=== PATIENT | female | born 1945 | race Caucasian/White ===

== ENCOUNTER 2016-05-25 12:04 | Outpatient (CLI) | payer MEDICARE, OTHER | END 2016-05-25 12:05 | disposition home or self-care (01) | DX: R06.00 Dyspnea, unspecified (principal) ==

== ENCOUNTER 2016-06-09 03:21 | Emergency (ER) | payer MEDICARE, OTHER ==
[2016-06-09] MEDS ORDERED: NITROGLYCERIN SL 0.4 MG TABLET SL STA (04:13)
[2016-06-09] MEDS ORDERED: NITROGLYCERIN SL 0.4 MG TABLET SL ONE (04:21)
[2016-06-09] MEDS ORDERED: MAG HYDROX/AL HYDROX/SIMETH 30 ML UDC PO STA (05:13)
[2016-06-09] MEDS ORDERED: LIDOCAINE VISCOUS 2% 15 ML UDC MM STA (05:13)
[2016-06-09] MEDS ORDERED: MAG HYDROX/AL HYDROX/SIMETH 30 ML UDC ONE (05:21)
[2016-06-09] MEDS ORDERED: LIDOCAINE VISCOUS 2% 15 ML UDC MM ONE (05:21)
== END 2016-06-09 05:53 | disposition home or self-care (01) ==
DX: R07.89 Other chest pain (principal); I10 Essential (primary) hypertension; K21.9 Gastro-esophageal reflux disease without esophagitis; E03.9 Hypothyroidism, unspecified; Z79.82 Long term (current) use of aspirin
CPT/HCPCS: 36415; 71020; 80053; 83690; 83735; 83880; 84484; 85025; 93005; 93010; 99284; A9270

== ENCOUNTER 2016-06-17 12:56 | Outpatient (CLI) | payer MEDICARE, OTHER | END 2016-06-17 12:57 | disposition home or self-care (01) | DX: R06.00 Dyspnea, unspecified (principal); Z87.891 Personal history of nicotine dependence; R91.8 Other nonspecific abnormal finding of lung field ==

== ENCOUNTER 2016-10-24 15:13 | Emergency (ER) | payer MEDICARE, OTHER ==
[2016-10-24 15:21] VITALS: BP 151/71
[2016-10-24] MEDS ORDERED: NAPROXEN 250 MG TABLET PO STA (15:27)
--- NOTE | 2016-10-24 15:29 | ED Physician Documentation ---
PD HPI UPPER EXT INJURY - Stated complaint Stated Complaint: LT ARM/SHOULDER PAIN FALL - Chief complaint Chief Complaint: Ext Problem - History obtained from History obtained from: Patient - History of Present Illness Location: Right, Shoulder Type of injury: Fall (Fell after going on a curb, landed on her right shoulder and scraped her right elbow and left index finger. No other injuries. 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, Breast implants HEENT: Cataracts, Tonsil/Adenoidectomy - Present Medications Home Medications: Ambulatory Orders Medication Instructions Recorded Confirmed Aspirin [Aspir 81] 81 mg PO DAILY 09/16/13 06/09/16 Cholecalciferol (Vitamin D3) 2,000 unit PO DAILY 09/16/13 06/09/16 [Vitamin D3] Levothyroxine Sodium [Levoxyl] 137 mcg PO DAILY 09/16/13 06/09/16 Lorazepam 0.5 mg PO BID PRN 09/16/13 06/09/16 Losartan Potassium [Cozaar] 100 mg PO DAILY 09/16/13 06/09/16 Omeprazole [Prilosec] 20 mg PO BID 09/16/13 06/09/16 Simvastatin 20 mg PO DAILY 09/16/13 06/09/16 Zolpidem [Ambien] 5 mg PO HS PRN 09/16/13 06/09/16 hydroCHLOROthiazide [Hydrodiuril] 25 mg PO DAILY 09/16/13 06/09/16 Citalopram Hydrobromide [Celexa] 10 mg PO DAILY 09/04/14 06/09/16 - Allergies Allergies/Adverse Reactions: Allergies Allergy/AdvReac Type Severity Reaction Status Date / Time acetaminophen [From Vicodin] Allergy Emesis Verified 06/09/16 03:29 hydrocodone bitartrate * Allergy Emesis Verified 06/09/16 03:29 [From Vicodin] metronidazole [From Flagyl] AdvReac Intermediate Hives Verified 06/09/16 03:28 Metronidazole HCl * AdvReac Intermediate Hives Verified 06/09/16 03:28 [From Flagyl] - Social History Does the pt smoke?: No Smoking Status: Never smoker Does the pt drink ETOH?: Yes Does the pt have substance abuse?: No - Immunizations Immunizations are current?: Yes - POLST Patient has POLST: No PD ED PE NORMAL - Vitals Vital signs reviewed: Yes - General General: Alert and oriented X 3, No acute distress - Neck Neck: Supple, no meningeal sign, No bony TTP - Extremities Extremities: Other (Right shoulder is tender anteriorly but with relatively good range of motion with internal and external rotation and abduction up to 45 . There is a scrape over the right elbow but pretty shallow and no tenderness or limited range of motion there, also a small scrape over the PIP dorsally of the left second finger without limited range of motion or tenderness.) - Neuro Neuro: Alert and oriented X 3, Normal speech - Psych Psych: Normal mood, Normal affect Results - Vitals Vitals: Vital Signs - 24 hr 10/24/16 10/24/16 15:15 16:34 Temperature 36.7 C Heart Rate 76 66 Respiratory 18 17 Rate Blood Pressure 151/71 H O2 Saturation 96 95 Oxygen O2 Source Room air - Rads (name of study) R shoulder Radiology: EMP read contemporaneously (Mild AC DJD) PD MEDICAL DECISION MAKING - ED course ED course: Wounds were cleansed and dressed. Departure - Departure Disposition: 01 Home, Self Care Clinical Impression: Sprain of shoulder, right Qualifiers: Encounter type: initial encounter Shoulder sprain type: unspecified sprain Qualified Code(s): S43.401A - Unspecified sprain of right shoulder joint, initial encounter Condition: Good Record reviewed to determine appropriate education?: Yes Instructions: ED Sprain AC Joint Comments: Call your doctor to arrange a follow up appointment. Make the next available appointment. In the interim return anytime if worse or if new symptoms develop. Your blood pressure was elevated today on check in to the emergency department. This does not mean that you have hypertension, it is a common phenomenon to check into the emergency department and have elevated blood pressure. I recommend that you see your primary care physician within the week to have it rechecked when you're feeling better. Discharge Date/Time: 10/24/16 16:35
[2016-10-24] MEDS ORDERED: NAPROXEN 250 MG TABLET PO ONE (15:31)
--- NOTE | 2016-10-24 16:23 | XRAY Report ---
THREE-VIEW RIGHT SHOULDER: 10/24/2016 CLINICAL INDICATION: Injury, pain. FINDINGS: Internal and external rotational views and a scapular Y view of the right shoulder demonst rate mild degenerative changes of the acromioclavicular joint. There is no evidence of acute fractur e or dislocation. No radiopaque foreign body is seen in the soft tissues. IMPRESSION: MILD DEGENERATIVE CHANGES OF THE AC JOINT. NO EVIDENCE OF ACUTE FRACTURE. JOB #: [id number] EXT JOB #:[id number]
== END 2016-10-24 16:35 | disposition home or self-care (01) ==
LOC: ED 15:13
DX: S43.401A Unspecified sprain of right shoulder joint, initial encounter (principal); W10.1XXA Fall (on)(from) sidewalk curb, initial encounter; Y92.480 Sidewalk as the place of occurrence of the external cause; S50.311A Abrasion of right elbow, initial encounter; I10 Essential (primary) hypertension; E78.00 Pure hypercholesterolemia, unspecified; E03.9 Hypothyroidism, unspecified; K21.9 Gastro-esophageal reflux disease without esophagitis; M19.90 Unspecified osteoarthritis, unspecified site; Z79.82 Long term (current) use of aspirin
CPT/HCPCS: 73030; 99283; A9270

== ENCOUNTER 2016-11-10 10:15 | Outpatient (CLI) | payer MEDICARE, OTHER ==
--- NOTE | 2016-11-11 09:42 | Mammography Report ---
DIGITAL BILATERAL SCREENING MAMMOGRAM: 11/10/2016 CLINICAL HISTORY: This is a 71-year-old female who has bilateral breast implants. The patient recen tly fell and had significant bruising involving her left breast. Patient has no family history of br east cancer. Breast surgery includes implants. TECHNIQUE: Craniocaudad and oblique lateral views of each breast were obtained with [facility] Full Fie ld digital mammography. To compliment the exam, bilateral craniocaudad and oblique lateral August vi ews were done. FINDINGS: Bilateral subglandular encapsulated silicone breast prostheses are seen. The encapsulated silicone breast prostheses have free silicone along their surface bilaterally. Free silicone has no t migrated beyond the area of the prostheses/fibrous encapsulation. Some scattered benign-appearing calcifications are noted in the breasts related to benign fat necrosi s. Breast parenchyma consists of almost entirely of fat. There is a new asymmetrical density noted in the upper outer quadrant of the left breast. This measures 1.8 cm and has mildly lobulated margin s. It resides in the 2 o'clock position of the left breast 4-5 cm superolateral to the nipple. This finding may represent a small hematoma due to patient's recent trauma. Recommend patient return for left breast ultrasound to further evaluate this finding. Right breast demonstrates tiny density in the superior aspect of this breast measuring 0.3 cm in diam eter. This finding has been present on preceding mammograms dated as far back as 01/27/2014 without significant change. IMPRESSION: 1. A 1.8 CM ASYMMETRICAL DENSITY IN THE 2 O'CLOCK POSITION OF THE LEFT BREAST IS NOW SEEN. THIS WAS NOT NOTED ON PRECEDING MAMMOGRAMS. IT MAY REPRESENT A HEMATOMA RELATED TO PATIENT'S RECENT TRAUMA. RECOMMEND PATIENT RETURN FOR LEFT BREAST ULTRASOUND FOR FURTHER EVALUATION. 2. BILATERAL ENCAPSULATED SUBGLANDULAR SILICONE BREAST PROSTHESES. JOB #: [id number] EXT JOB #:[id number]
== END 2016-11-10 10:16 | disposition home or self-care (01) ==
LOC: DI 10:15
PROVIDERS: ATTEND Registered Nurse
DX: Z12.31 Encounter for screening mammogram for malignant neoplasm of breast (principal); R92.8 Other abnormal and inconclusive findings on diagnostic imaging of breast; Z98.82 Breast implant status
CPT/HCPCS: 77067

== ENCOUNTER 2016-11-16 10:59 | Outpatient (CLI) | payer MEDICARE, OTHER | END 2016-11-16 11:00 | disposition home or self-care (01) | LOC: LAB.F 10:59 | PROVIDERS: ATTEND Internal Medicine Cardiovascular Disease | DX: R00.2 Palpitations (principal); I10 Essential (primary) hypertension | CPT/HCPCS: 36415; 83735 ==

== ENCOUNTER 2016-11-30 13:56 | Outpatient (CLI) | payer MEDICARE, OTHER ==
--- NOTE | 2016-11-30 18:12 | Ultrasound Report ---
LEFT BREAST ULTRASOUND: 11/30/2016 CLINICAL INDICATION: Possible asymmetry left upper-outer quadrant. COMPARISON: Screening mammogram 11/10/2016. TECHNIQUE: Real-time scanning was performed with healthcare sales representative static images obtained. Ultrasound of the left upper-outer quadrant was performed. Unremarkable parenchymal lobules are pres ent. No discrete solid or cystic mass is identified. No sonographically suspicious findings are see n. Subglandular implant is noted. IMPRESSION: NEGATIVE EXAMINATION. RECOMMENDATION: ROUTINE ANNUAL SCREENING UNLESS OTHERWISE CLINICALLY INDICATED. BIRADS CATEGORY: 1, NEGATIVE. JOB #: [id number] EXT JOB #:[id number]
== END 2016-11-30 13:57 | disposition home or self-care (01) ==
LOC: DI 13:56
PROVIDERS: ATTEND Registered Nurse
DX: N63 Unspecified lump in breast (principal)
CPT/HCPCS: 76642

== ENCOUNTER 2017-02-16 09:03 | Outpatient (CLI) | payer MEDICARE, OTHER ==
[2017-02-16 17:51] LABS: ALBUMIN/GLOBULIN RATIO 1.6 (1.0-2.2); BILIRUBIN,TOTAL 0.7 mg/dL (0.2-1.0); CALCIUM 9.2 mg/dL (8.5-10.3); CREATININE 0.9 mg/dL (0.4-1.0); POTASSIUM 4.1 mmol/L (3.5-5.0); TOTAL PROTEIN 7.1 g/dL (6.7-8.2)
== END 2017-02-16 09:04 | disposition home or self-care (01) ==
LOC: LAB.F 09:03
PROVIDERS: ATTEND Registered Nurse
DX: E03.9 Hypothyroidism, unspecified (principal); I10 Essential (primary) hypertension; E78.5 Hyperlipidemia, unspecified
CPT/HCPCS: 36415; 80053; 84443

== ENCOUNTER 2017-05-01 08:58 | Outpatient (CLI) | payer MEDICARE, OTHER ==
--- NOTE | 2017-05-02 10:49 | XRAY Report ---
TWO-VIEW CHEST: 05/01/2017 CLINICAL INDICATION: Cough, dyspnea. FINDINGS: Frontal and lateral views of the chest demonstrate a normal cardiac silhouette. The lungs are hyperinflated, suggestive of COPD. No focal consolidation, effusion, or pneumothorax is evident. IMPRESSION: NO EVIDENCE OF ACUTE CARDIOPULMONARY DISEASE. NO SIGNIFICANT INTERVAL CHANGE FROM 06/09/2016. MTDD
== END 2017-05-01 08:59 | disposition home or self-care (01) ==
LOC: DI 08:58
PROVIDERS: ATTEND Registered Nurse
DX: R05 Cough (principal); R06.00 Dyspnea, unspecified
CPT/HCPCS: 71020

== ENCOUNTER 2017-05-18 14:11 | Observation (INO) | payer MEDICARE, OTHER ==
--- NOTE | 2017-05-18 14:59 | ED Physician Documentation ---
PD HPI CHEST PAIN - Stated complaint Stated Complaint: CHEST TIGHTNESS - Chief complaint Chief Complaint: Cardiac - History obtained from History obtained from: Patient - History of Present Illness Timing - onset: Other (For the last month or so she has had episodic chest pain that is central and sometimes radiating to the back and out to the arms that usually starts when she bends over and last about a minute at a time. The intensity is not increasing but the frequency is, she had 3 episodes today which is new. She is a little short of breath with it. She is in minimal pain as we speak. Per her she had a negative stress test 3 years ago and had a chest x-ray without acute changes within the last week.) - Treatment prior to arrival Treatment prior to arrival: She took 4 baby aspirin just prior to coming to the emergency department. 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, 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, Breast implants HEENT: Cataracts, Tonsil/Adenoidectomy - Present Medications Home Medications: Ambulatory Orders Medication Instructions Recorded Confirmed Aspirin [Aspir 81] 81 mg PO DAILY 09/16/13 06/09/16 Cholecalciferol (Vitamin D3) 2,000 unit PO DAILY 09/16/13 06/09/16 [Vitamin D3] Levothyroxine Sodium [Levoxyl] 137 mcg PO DAILY 09/16/13 06/09/16 Lorazepam 0.5 mg PO BID PRN 09/16/13 06/09/16 Losartan Potassium [Cozaar] 100 mg PO DAILY 09/16/13 06/09/16 Omeprazole [Prilosec] 20 mg PO BID 09/16/13 06/09/16 Simvastatin 20 mg PO DAILY 09/16/13 06/09/16 Zolpidem [Ambien] 5 mg PO HS PRN 09/16/13 06/09/16 hydroCHLOROthiazide [Hydrodiuril] 25 mg PO DAILY 09/16/13 06/09/16 Citalopram Hydrobromide [Celexa] 10 mg PO DAILY 09/04/14 06/09/16 - Allergies Allergies/Adverse Reactions: Allergies Allergy/AdvReac Type Severity Reaction Status Date / Time acetaminophen [From Vicodin] Allergy Emesis Verified 05/18/17 14:50 hydrocodone bitartrate * Allergy Emesis Verified 05/18/17 14:50 [From Vicodin] metronidazole [From Flagyl] AdvReac Intermediate Hives Verified 05/18/17 14:50 Metronidazole HCl * AdvReac Intermediate Hives Verified 05/18/17 14:50 [From Flagyl] - Social History Does the pt smoke?: No Smoking Status: Never smoker Does the pt drink ETOH?: Yes Does the pt have substance abuse?: No - Family History Family history: reports: Non contributory - Immunizations Immunizations are current?: Yes - POLST Patient has POLST: No PD ED PE NORMAL - Vitals Vital signs reviewed: Yes - General General: Alert and oriented X 3, No acute distress - HEENT HEENT: PERRL, EOMI - Neck Neck: Supple, no meningeal sign, No bony TTP - Cardiac Cardiac: RRR, No murmur - Respiratory Respiratory: No respiratory distress, Clear bilaterally - Abdomen Abdomen: Soft, Non tender - Back Back: No CVA TTP, No spinal TTP - Derm Derm: Normal color, Warm and dry, No rash - Extremities Extremities: No edema - Neuro Neuro: Alert and oriented X 3, Normal speech - Psych Psych: Normal mood, Normal affect Results - Vitals Vitals: Vital Signs - 24 hr 05/18/17 14:37 Temperature 36.4 C L Heart Rate 69 Respiratory 16 Rate Blood Pressure 179/90 H O2 Saturation 100 Oxygen O2 Source Room air - EKG (time done) 1421 Rate: Rate (enter#) (68) Rhythm: NSR Intervals: Other (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) QRS: Low voltage Ischemia: Normal ST segments Computer interpretation: Agree with computer - Labs Labs: Laboratory Tests 05/18/17 05/18/17 05/18/17 15:20 15:20 15:20 WBC 7.0 RBC 4.28 Hgb 13.1 Hct 38.1 MCV 89.1 MCH 30.6 MCHC 34.4 RDW 13.0 Plt Count 250 MPV 8.3 Neut # 4.1 Lymph # 2.2 [place] # 0.4 Eos # 0.1 Baso # 0.1 Absolute Nucleated RBC 0.00 Nucleated RBC % 0.0 Sodium 137 Potassium 4.0 Chloride 100 L Carbon Dioxide 28 Anion Gap 9.0 BUN 16 Creatinine 0.7 Estimated GFR (MDRD) 82 L Glucose 99 Calcium 9.7 Total Bilirubin 0.8 AST 32 ALT 42 Alkaline Phosphatase 68 Troponin I < 0.04 Total Protein 7.3 Albumin 4.4 Globulin 2.9 Albumin/Globulin Ratio 1.5 Lipase 28 PD MEDICAL DECISION MAKING - ED course ED course: She had a recent chest x-ray which was negative, so this was not repeated. She had aspirin prior to arrival. She is atypical chest pain but it is increasing in frequency, negative biomarkers, a new left anterior fascicular block on EKG without other ST-T changes. She probably deserves overnight observation and stress testing, spoke with Dr. Barker at 4:08 PM for observation. Departure - Departure Disposition: ED Place in Observation Clinical Impression: Chest pain Qualifiers: Chest pain type: unspecified Qualified Code(s): R07.9 - Chest pain, unspecified Condition: Stable
[2017-05-18 15:32] LABS: BASOPHILS # (AUTO) 0.1 10^3/uL (0.0-0.1); BASOPHILS % (AUTO) 0.8 %; EOSINOPHILS # (AUTO) 0.1 10^3/uL (0.0-0.7); HGB - HEMOGLOBIN 13.1 g/dL (12.0-16.0); LYMPHOCYTES # (AUTO) 2.2 10^3/uL (1.5-3.5); MEAN CORPUSCULAR HEMOGLOBIN 30.6 pg (27.0-31.0); MEAN CORPUSCULAR HGB CONC 34.4 g/dL (32.0-36.0); MEAN CORPUSCULAR VOLUME 89.1 fL (81.0-99.0); MEAN PLATELET VOLUME 8.3 fL (7.9-10.8); MONOCYTES # (AUTO) 0.4 10^3/uL (0.0-1.0); MONOCYTES % (AUTO) 6.3 %; NEUTROPHILS # (AUTO) 4.1 10^3/uL (1.5-6.6); NEUTROPHILS % (AUTO) 58.9 %; PLT - PLATELET COUNT 250 10^3/uL (130-450); RED BLOOD COUNT 4.28 10^6/uL (4.20-5.40)
[2017-05-18 15:41] LABS: ALBUMIN 4.4 g/dL (3.2-5.5); ALBUMIN/GLOBULIN RATIO 1.5 (1.0-2.2); BILIRUBIN,TOTAL 0.8 mg/dL (0.2-1.0); CALCIUM 9.7 mg/dL (8.5-10.3); CREATININE 0.7 mg/dL (0.4-1.0); TOTAL PROTEIN 7.3 g/dL (6.7-8.2)
[2017-05-18] MEDS ORDERED: TEMAZEPAM 15 MG CAPSULE PO PRN (16:35)
[2017-05-18] MEDS ORDERED: PROCHLORPERAZINE 10 MG/2 ML VIAL IVP PRN (16:35)
[2017-05-18] MEDS ORDERED: ACETAMINOPHEN 325 MG TABLET PO PRN (16:35)
[2017-05-18] MEDS ORDERED: HYDROmorphone 1 MG/ML SYRINGE IVP PRN (16:35)
[2017-05-18] MEDS ORDERED: SODIUM CHLORIDE FLUSH 0.9% 10 ML SYRINGE IVP PRN (16:35)
[2017-05-18] MEDS ORDERED: NITROGLYCERIN SL 0.4 MG TABLET SL PRN (16:40)
[2017-05-18] MEDS ORDERED: ZOLPIDEM 5 MG TABLET PO PRN (16:43)
[2017-05-18] MEDS ORDERED: LORazepam 0.5 MG TABLET PO PRN (16:43)
[2017-05-18] MEDS ORDERED: ATORVASTATIN 40 MG TABLET PO STA (16:45)
[2017-05-18] MEDS ORDERED: ATORVASTATIN 40 MG TABLET PO SCH (22:00)
[2017-05-18] MEDS: SODIUM CHLORIDE FLUSH 0.9% 10 ML SYRINGE IVP SCH (22:49)
[2017-05-19 04:16] LABS: CHOLESTEROL 170 mg/dL; HDL CHOLESTEROL 42 mg/dL; LDL CHOLESTEROL,CALCULATED 95 mg/dL; LDL/HDL RATIO 2.3 (<4.4); VLDL CHOLESTEROL 33 mg/dL
[2017-05-19] MEDS: SODIUM CHLORIDE FLUSH 0.9% 10 ML SYRINGE IVP SCH ×2 (06:32→14:55)
[2017-05-19] MEDS ORDERED: LEVOTHYROXINE 25 MCG TABLET PO SCH (07:00)
[2017-05-19] MEDS ORDERED: LEVOTHYROXINE 112 MCG TABLET PO SCH (07:00)
[2017-05-19] MEDS ORDERED: ASPIRIN 325 MG TABLET PO SCH (08:00)
[2017-05-19] MEDS ORDERED: LOSARTAN 50 MG TABLET PO SCH (09:00)
[2017-05-19] MEDS ORDERED: FAMOTIDINE 20 MG TABLET PO SCH (09:00)
[2017-05-19] MEDS ORDERED: POLYETHYLENE GLYCOL 3350 17 GM PACKET PO SCH (09:00)
[2017-05-19] MEDS ORDERED: LOSARTAN POTASSIUM 100 MG PO SCH (09:00)
[2017-05-19] MEDS ORDERED: hydroCHLOROthiazide 25 MG TABLET PO SCH (09:00)
[2017-05-19] MEDS ORDERED: CITALOPRAM 10 MG TABLET PO SCH (09:00)
--- NOTE | 2017-05-19 13:40 | HISTORY & PHYSICAL EXAMINATION ---
DATE OF SERVICE: 05/18/2017 Physician: Jenniffer Porras MD HISTORY OF PRESENT ILLNESS: This is a 72-year-old white female with history of hypertension, hyperlipidemia, heart murmur, hypothyroidism, GERD, anxiety and depression, chronic back pain. 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 The patient states that for approximately one month she has had episodes of pain that begins in her mid back, radiates down both arms and then wraps around her chest "like Saran wrap tightening." This always happens after she has leaned over to do something and then upon arising. It is associated with dizziness and overall uncomfortable feeling and she "needs to sit down or think she will faint." She has never had syncope with this. There is no shortness of breath or palpitations with it. She has been seen by her primary care doctor for this complaint and there was an impression that this could be a hiatal hernia or GERD. The patient is scheduled to see a locksmith apprentice in approximately 2 weeks, a stress test and echo are also scheduled in about the next 7-10 days. The patient had 3 episodes of this symptom today and therefore she presented to the emergency room, normally she has only 1 per day. The patient took 4 baby aspirin just prior to coming. REVIEW OF SYSTEMS: The patient has mid and low back pain, longstanding. She has had prior injections, which did help for several months for the lower back pain, but the most recent one has not helped and during the injection she describes feeling shock feeling going down the posterior part of her leg because she thinks that the nerve was hit. Otherwise, comprehensive review of systems was performed and is negative, except for the above. FAMILY HISTORY: Positive for heart disease. Early family history and her sister, 2 nieces. Her father of a ruptured aortic aneurysm. Mother's history is not known. MEDICATIONS: At home 1. Baby aspirin daily. 2. Vitamin D3. 3. Levoxyl 137 mcg daily. 4. Lorazepam 0.5 mg p.o. b.i.d. p.r.n. anxiety. 5. Cozaar 100 mg p.o. daily. 6. Prilosec 20 mg p.o. b.i.d. 7. Simvastatin 20 mg p.o. daily. 8. Ambien 5 mg p.o. at bedtime p.r.n. 9. HCTZ 25 mg p.o. daily. 10. Celexa 10 mg p.o. daily. ALLERGIES 1. VICODIN WHICH CAUSED EMESIS. 2. FLAGYL WHICH CAUSED HIVES. SOCIAL HISTORY: The patient is a nonsmoker. She quit 30 years ago. The patient drinks alcohol only socially. She does not use any illicit drugs. PAST SURGICAL HISTORY: Tubal ligation, hysterectomy, breast implants, cataract surgery, tonsils. PHYSICAL EXAMINATION: GENERAL: Elderly white female who appears younger than her age. She is in no distress. VITAL SIGNS: Blood pressure 140/90, but was as high as 160/70 on admission. Heart rate is in the 60s and 70s in sinus rhythm, afebrile, 100% saturated on room air. ENT is unremarkable. Moist oral mucosa. NECK: Shows no JVD. No thyromegaly. No lymphadenopathy. The right neck has a positive right carotid bruit. LUNGS: Clear. HEART: Sounds are normal, without murmur or gallop. ABDOMEN: Soft, nontender. No organomegaly. EXTREMITIES: Show no clubbing, cyanosis or edema. No rash. No calf tenderness. NEUROLOGIC: Grossly intact. LABORATORY DATA: Troponin NONdetectable x1. Normal BMP and liver tests normal BUN and creatinine. Normal CBC. 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 Chest x-ray: No active pulmonary disease. IMPRESSION 1. Chest pain with typical description of features for angina, but atypical presentation in that it only begins when she leans over and rises upright. 2. Hypertension. 3. Hypothyroidism. Elevated cholesterol history. carotid bruit. Family history of early heart disease. Family history of aortic aneurysm. PLAN: Place the patient in observation on telemetry. Cycle troponins. If these are negative, then proceed to a stress test tomorrow. Recommend aortic imaging to rule out dilation or dissection as well because of the location of the beginning of pain plus the family history. Check lipids and treat per guidelines. Continue her hypertensive and hypothyroid medicines. Obtain carotid Doppler given the new bruit . TD: 05/19/2017 14:27 [facility]
[2017-05-19] MEDS ORDERED: REGADENOSON 0.4 MG/5 ML SYRINGE IVP ONE ×2 (14:13→15:52)
[2017-05-19] MEDS ORDERED: IOPAMIDOL-300 100 ML VIAL ONE (14:56)
--- NOTE | 2017-05-19 17:31 | CARDIAC PROCEDURE NOTE ---
DATE OF SERVICE: 05/19/2017 Physician: Jenniffer Porras MD DATE: 05/19/2017. LOCATION: Observation. After signing informed consent, the patient underwent a Lexiscan pharmaceutical stress test with myoc ardial perfusion imaging at rest and exercise. Baseline EKG: Normal sinus rhythm, right bundle branch block, left anterior fascicular block. Peak EKG: No ST or T-wave changes. Resting heart rate 72. Peak heart rate achieved 122. Resting blood pressure 166/82. Peak blood pre ssure 170/70. The patient experienced brief flushing and shortness of breath. No chest pain. IMPRESSION: Negative EKG portion of a pharmaceutical stress test. Nuclear images are reported separately. TD: 05/19/2017 18:18
[2017-05-19] MEDS ORDERED: IBUPROFEN 600 MG TABLET PO SCH (18:00)
--- NOTE | 2017-05-19 18:40 | Nuclear Medicine Prelim Report ---
Exam: NM MYOCARDIAL PERFUSION STR/RST IMPRESSION: 1. No scintigraphic findings to indicate myocardial ischemia. Negative for infarct. 2. Normal left ventricular ejection fraction of 84%. 3. Normal segmental and global wall motion. 4. Normal left ventricular cavity size, no change with stress. RADIA The call report notification system was initiated by Dr. Pooja Wiggins at 18:36 hrs on 05/19/17. The above findings were discussed with Dr Chiquita Dr by Dr. Pooja Wiggins at 18:39 hrs on 04/22 02/05. SITE ID: [id number]
--- NOTE | 2017-05-19 18:48 | Nuclear Medicine Report ---
EXAM: SINGLE-ISOTOPE PHARMACOLOGICAL STRESS TEST WITH ADENOSINE. SINGLE-ISOTOPE AND SAME-DAY REST/STRESS MY OCARDIAL PERFUSION SCANS WITH TOMOGRAPHIC IMAGING, QUANTITATIVE ANALYSIS, WALL MOTION ANALYSIS AND CA LCULATION OF EJECTION FRACTION. EXAM DATE: 05/19/2017 04:49 PM. CLINICAL HISTORY: Chest pain. COMPARISON: None. TECHNIQUE: Following the intravenous administration of 10.4 mCi of Tc-99m sestamibi, a rest myocardia l perfusion scan was done with tomography. Motion correction was applied when appropriate. After a delay of several hours on the same day, a pharmacological stress was performed with the infus ion of 0.4 mg of Lexiscan. According to protocol, 42.6 mCi of Tc-99m sestamibi was injected for stres s myocardial perfusion scan. Stress myocardial perfusion was done with tomography without attenuation correction. Motion correction was applied when appropriate. Gated tomographic images were obtained for wall motion analysis and computation of left ventricular ejection fraction. FINDINGS: Stress perfusion images demonstrate normal distribution of radiotracer activity without alisha dence of fixed or reversible ischemia. No other convincing perfusion abnormalities. No convincing evidence of transient ischemic dilatation. Resting wall motion analysis demonstrates normal wall motion. The left ventricular end-diastolic volume is 68 cc. The left ventricular end-systolic volume is 11 cc . The left ventricular ejection fraction is calculated to be 84%. IMPRESSION: 1. No scintigraphic findings to indicate myocardial ischemia. Negative for infarct. 2. Normal left ventricular ejection fraction of 84%. 3. Normal segmental and global wall motion. 4. Normal left ventricular cavity size, no change with stress. BRENNA The call report notification system was initiated by Dr. Pooja Wiggins at 18:36 hrs on 05/19/17. The above findings were discussed with Dr. Porras by Dr. Pooja Wiggins at 18:39 hrs on 7. Referring Provider Line: [phone] SITE ID: [id number]
[2017-05-19 19:11] VITALS: BP 115/45
--- NOTE | 2017-05-19 19:31 | Discharge Plan ---
Discharge Plan Disposition: 01 Home, Self Care Condition: Stable Diet: Low Sodium Activity Restrictions: Activity as Tolerated Shower Restrictions: No Driving Restrictions: No Additional Instructions or Follow Up instructions: See your PCP and Cream Dipper as already scheduled. You should have: Carotid Doppler exam to evaluate the abnormal sound in the Right carotid artery CT scan of the chest to evaluate for aortic aneurysm or dissection, especially since your father of this disease. Continue all your previous medications. Have your doctor adjust your medications for better blood pressure control. No Smoking: If you smoke, Please STOP! Call for help. Follow-up with: Noris Shah ARNP [Primary Care Provider] -
--- NOTE | 2017-07-03 06:27 | DISCHARGE SUMMARY ---
Physician: Jenniffer Porras MD DATE OF ADMISSION: 05/18/2017 DATE OF DISCHARGE: 05/19/2017 DATE OF ADMISSION: 05/18/2017 DATE OF DISCHARGE: 05/19/2017 HISTORY OF PRESENT ILLNESS: This is a 72-year-old white female with history of hypertension, hyperlipidemia, hypothyroidism, GERD, heart murmur, who came to the ER for a complaint of 1 month of chest pain that begins in her mid back and radiates down both arms and wraps around her chest normally occurring when she leans over and then uprights. Then she has mild dizziness which quickly dissipates. These symptoms usually were happening once a day, but on this day there were 3 recurrences, so she presented to the emergency room. Because of her age and risk factors for cardiovascular disease, she was placed in observation for evaluation and management of chest pain. HOSPITAL COURSE AND DISCHARGE DIAGNOSES 1. Chest pain. The patient's risk factors for coronary artery disease include age, family history, hypertension, hyperlipidemia, postmenopausal status. The patient had blood troponins evaluated x3, which were all undetectable. 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 The patient then underwent pharmaceutical stress testing using Lexiscan. There were no changes in the EKG with stress and she had no chest pain or shortness of breath. The corresponding myocardial perfusion imaging showed no evidence of ischemia, no LV dilation, or wall motion abnormalities and an LVEF of 84%. The patient also underwent a resting Echo which showed mild LVH, a resting LVEF of 60% and mild LV diastolic dysfunction. Her lipid panel showed good control with an LDL of 95, triglyceride 167. The patient was discharged with plan to have the already scheduled appointment with her geothermal plant manager for further evaluation, especially to undergo CT scan of the chest (because her father had an aortic aneurysm). Also, since a right-sided carotid bruit was heard on this admission, an outpatient carotid Doppler and further evaluation is advised. 2. Hypertension. The patient's blood pressure was intermittently elevated during her stay, at 156/78, but adjustments in BP medications are left to be done by her geothermal plant manager or PCP. 3. Right carotid bruit. This was an incidental finding on physical exam. Outpatient carotid Doppler and further testing is recommended. 4. Hypothyroidism. The patient was maintained on her thyroid replacement during this hospitalization. LABORATORY DATA AND IMAGING: Reviewed and summarized above. ALLERGIES 1. TYLENOL. 2. HYDROCODONE. 3. METRONIDAZOLE. DISCHARGE MEDICATIONS: Unchanged from admission: 1. Ativan 0.5 to 1 mg p.o. b.i.d. p.r.n. anxiety. 2. Vitamin D3 2000 units daily. 3. Baby aspirin daily. 4. HCTZ 25 mg daily. 5. Ambien 5 mg p.o. at bedtime p.r.n. insomnia. 6. Simvastatin 20 mg q.p.m. 7. Synthroid 137 mcg p.o. daily. 8. Cozaar 100 mg p.o. daily. STATUS AT DISCHARGE: Stable EXAM AT DISCHARGE: HEENT: unremarkable Neck: Right-sided carotid bruit, no JVD or thyromegaly Chest: clear Heart: normal S1 and S2, 2/6 systolic murmur at left sternal border radiating to base Abdomen: soft and unremarkable Extremities: WNL Neuro: grossly normal CODE STATUS: FULL CODE. FOLLOWUP: With her geothermal plant manager in 2 weeks as already scheduled, and with her PCP for routine followup. TIME REQUIRED TO COMPLETE THIS ENTIRE DISCHARGE: 30 minutes. TD: 07/03/2017 06:26 STEVE
== END 2017-05-19 19:55 | disposition home or self-care (01) ==
LOC: ED 14:11 → OBS 16:35
PROVIDERS: ADMIT Internal Medicine; ATTEND Internal Medicine
DX: R07.89 Other chest pain (principal); I11.9 Hypertensive heart disease without heart failure; E03.9 Hypothyroidism, unspecified; K21.9 Gastro-esophageal reflux disease without esophagitis; F32.9 Major depressive disorder, single episode, unspecified; F41.9 Anxiety disorder, unspecified; E78.5 Hyperlipidemia, unspecified; R01.1 Cardiac murmur, unspecified; M54.5 Low back pain; G89.29 Other chronic pain; Z87.891 Personal history of nicotine dependence; Z82.49 Family history of ischemic heart disease and other diseases of the circulatory system; Z79.82 Long term (current) use of aspirin; Z78.0 Asymptomatic menopausal state
CPT/HCPCS: 36415; 78452; 80053; 80061; 83690; 84484; 85025; 93017; 93306; 99283; 99285; A9270; A9500; G0378; J2785; 83721

== ENCOUNTER 2017-06-01 13:09 | Outpatient (CLI) | payer MEDICARE, OTHER ==
[2017-06-01] MEDS ORDERED: BARIUM SULFATE 148 GM POWDER PO ONE (14:10)
[2017-06-01] MEDS ORDERED: BARIUM SULFATE 135 ML BOTTLE PO ONE (14:10)
--- NOTE | 2017-06-02 09:52 | XRAY Report ---
DATE OF SERVICE: 06/01/2017 ESOPHAGRAM: 06/01/2017 CLINICAL INDICATION: Episodic chest pressure. FINDINGS: Esophagram was performed in the upright and prone positions. The hypopharynx appears unremarkable. The esophagus demonstrates normal caliber and contractility. No esophageal ulceration, mass lesion, or stricturing is identified. A small sliding hiatal hernia was intermittently visualized during the course of the examination, and did produce reflux. A 13 mm barium pill passed freely through the esophagus and into the stomach. IMPRESSION: SMALL SLIDING HIATAL HERNIA, PRODUCING REFLUX. NO EVIDENCE OF ULCERATION OR STRICTURING. FLUOROSCOPY TIME: 2 MINUTES 6 SECONDS; 20 SPOT IMAGES OBTAINED. TD: 06/02/2017 10:51
== END 2017-06-01 13:10 | disposition home or self-care (01) ==
LOC: DI 13:09
PROVIDERS: ATTEND Registered Nurse
DX: K44.9 Diaphragmatic hernia without obstruction or gangrene (principal); K21.9 Gastro-esophageal reflux disease without esophagitis
CPT/HCPCS: 74220; A9270

== ENCOUNTER 2017-09-14 08:35 | Outpatient (CLI) | payer MEDICARE, OTHER ==
[2017-09-14 11:46] LABS: BASOPHILS % (AUTO) 0.5 %; EOSINOPHILS # (AUTO) 0.2 10^3/uL (0.0-0.7); EOSINOPHILS % (AUTO) 3.9 %; HGB - HEMOGLOBIN 13.4 g/dL (12.0-16.0); LYMPHOCYTES % (AUTO) 34.4 %; MEAN CORPUSCULAR HEMOGLOBIN 29.4 pg (27.0-31.0); MEAN CORPUSCULAR VOLUME 86.5 fL (81.0-99.0); MEAN PLATELET VOLUME 8.7 fL (7.9-10.8); MONOCYTES # (AUTO) 0.4 10^3/uL (0.0-1.0); MONOCYTES % (AUTO) 6.2 %; NEUTROPHILS # (AUTO) 3.2 10^3/uL (1.5-6.6); PLT - PLATELET COUNT 224 10^3/uL (130-450); RED BLOOD COUNT 4.55 10^6/uL (4.20-5.40); RED CELL DISTRIBUTION WIDTH 12.6 % (12.0-15.0); WHITE BLOOD COUNT 5.9 x10^3/uL (4.8-10.8)
[2017-09-14 12:01] LABS: ALBUMIN 4.2 g/dL (3.2-5.5); ALBUMIN/GLOBULIN RATIO 1.6 (1.0-2.2); BILIRUBIN,TOTAL 0.5 mg/dL (0.2-1.0); CALCIUM 9.1 mg/dL (8.5-10.3); CREATININE 0.9 mg/dL (0.4-1.0); TOTAL PROTEIN 6.9 g/dL (6.7-8.2)
[2017-09-14 12:18] LABS: THYROID STIMULATING HORMONE 0.15 uIU/mL (0.34-5.60)
[2017-09-14 12:20] LABS: FREE T4 (FREE THYROXINE) 1.06 ng/dL (0.58-1.64)
== END 2017-09-14 08:36 | disposition home or self-care (01) ==
LOC: LAB.F 08:35
PROVIDERS: ATTEND Registered Nurse
DX: E78.5 Hyperlipidemia, unspecified (principal)
CPT/HCPCS: 36415; 80053; 84439; 84443; 85025

== ENCOUNTER 2017-09-14 09:44 | Outpatient (CLI) | payer MEDICARE, OTHER ==
--- NOTE | 2017-09-14 16:00 | XRAY Report ---
TWO VIEW CHEST: 09/14/2017 CLINICAL INDICATION: Cough, fatigue. COMPARISON: 05/01/2017 FINDINGS: Frontal and lateral views of the chest demonstrate a normal cardiac silhouette. The lungs remain clear. No effusion or pneumothorax is present. IMPRESSION: NORMAL CHEST, UNCHANGED. TD: 09/14/2017 15:59
== END 2017-09-14 09:45 | disposition home or self-care (01) ==
LOC: DI 09:44
PROVIDERS: ATTEND Registered Nurse
DX: R05 Cough (principal); R53.83 Other fatigue; E78.5 Hyperlipidemia, unspecified
CPT/HCPCS: 36415; 71046; 80053; 84439; 84443; 85025

== ENCOUNTER 2017-10-05 18:59 | Outpatient (CLI) | payer MEDICARE, OTHER ==
--- NOTE | 2017-10-06 00:41 | Ultrasound Preliminary Report ---
Exam: US DUPLEX EXT VEINS RIGHT IMPRESSION: 1. Anechoic fluid collection in the anterior lateral right knee measuring 2.7 x 1.7 x 0.5 cm may repr esent a bursitis or seroma. 2. No evidence for deep venous thrombosis. [facility] SITE ID: [id number]
--- NOTE | 2017-10-06 02:10 | Ultrasound Report ---
EXAM: RIGHT LOWER EXTREMITY VENOUS ULTRASOUND EXAM DATE: 10/05/2017 09:34 PM. CLINICAL HISTORY: Right leg pain. COMPARISON: None. TECHNIQUE: Real-time sonographic vascular imaging was performed by the fisher lampara net through the lower extremity utilizing both color-flow and Doppler spectral analysis. Multiple artist's representative static salena ges were saved for review. FINDINGS: Common Femoral Vein (CFV): Normal. CFV-GSV Junction: Normal. Profunda Femoral Vein (PFV): Normal. Femoral Vein (FV) Prox: Normal. Femoral Vein (FV) Mid: Normal. Femoral Vein (FV) Dist: Normal. Popliteal Vein: Normal. Posterior Tibial Veins: Normal. Peroneal Veins: Normal. Contralateral Side CFV: Normal. Other: Peroneal and distal right femoral veins are not seen. In the anterior lateral right knee, there is a lobulated anechoic fluid collection measuring 2.7 x 1. 7 x 0.5 cm. IMPRESSION: 1. Anechoic fluid collection in the anterior lateral right knee measuring 2.7 x 1.7 x 0.5 cm may repr esent a bursitis or seroma. 2. No evidence for deep venous thrombosis. [facility] Referring Provider Line: [phone] SITE ID: [id number]
--- NOTE | 2017-10-06 11:24 | XRAY Report ---
THREE VIEW RIGHT KNEE: 10/05/2017 CLINICAL INDICATION: Pain. FINDINGS: AP, lateral, sunrise views of the right knee demonstrate no evidence of fracture or dislocation. No effusion is present. The joint spaces are preserved. IMPRESSION: NORMAL RIGHT KNEE. TD: 10/06/2017 10:23
== END 2017-10-05 19:00 | disposition home or self-care (01) ==
LOC: DI 18:59
PROVIDERS: ATTEND Registered Nurse
DX: M79.604 Pain in right leg (principal)

== ENCOUNTER 2018-06-12 14:49 | Outpatient (CLI) | payer MEDICARE, OTHER ==
--- NOTE | 2018-06-13 10:40 | Ultrasound Report ---
Reason: OCCLUSION AND STENOSIS OF UNSPECIFIED CAROTID ROBYN Procedure Date: 06/12/2018 Accession Number: [id number] / [id number] Procedure: US - Carotid Doppler Complete CPT Code: FULL RESULT: EXAM: BILATERAL CAROTID AND VERTEBRAL ARTERY DUPLEX DOPPLER ULTRASOUND: EXAM DATE: 06/12/2018 04:04 PM CLINICAL HISTORY: Occlusion and stenosis of unspecified carotid artery. COMPARISON: None. TECHNIQUE: Grayscale imaging, color Doppler, and duplex spectral Doppler were used to evaluate the carotid and vertebral arteries bilaterally. Static images were obtained. FINDINGS: Approximately 50% hypoechoic/soft plaque was visually identified in both carotid bulb regions. Normal antegrade flow is present in bilateral vertebral arteries. VELOCITIES (cm/sec): Right: RCCA Mid: PSV 89 cm/sec. RCCA Dist: PSV 69 cm/sec. REUBEN Prox: PSV 201 cm/sec, EDV 44 cm/sec. REUBEN Mid: PSV 102 cm/sec, EDV 32 cm/sec. REUBEN Dist: PSV 76 cm/sec, EDV 16 cm/sec RECA: PSV 79 cm/sec. RVA: PSV 34 cm/sec. RVA flow direction: Antegrade. ICA/CCA: 2.26 Bulb: PSV 269 cm/sec, EDV 75 cm/sec. Left: LCCA Mid: PSV 73 cm/sec. LCCA Dist: PSV 72 cm/sec. LICA Prox: PSV 222 cm/sec, EDV 39 cm/sec. LICA Mid: PSV 82 cm/sec, EDV 22 cm/sec. LICA Dist: PSV 61 cm/sec, EDV 17 cm/sec LECA: PSV 90 cm/sec. LVA: PSV 62 cm/sec. RVA flow direction: Antegrade. ICA/CCA: 3.04 Bulb: PSV 256 cm/sec, EDV 65 cm/sec. Note: Bulb region velocities are excluded for purposes of classification as measurement in the area of maximal narrowing is error prone. ICA diameter stenosis: Right: 50-69% stenosis by velocity and <70% by NASCET criteria. Left: 50-69% stenosis by velocity and <70% by NASCET criteria. IMPRESSION: 1. Approximately 50% visually of hypoechoic/soft plaque in the bilateral carotid artery systems around the bifurcations. 2. Elevated systolic velocities in the proximal internal carotid artery with compatible waveforms and ICA/CCA ratio is consistent with approximately 50-69% stenosis on the right. 3. Elevated systolic velocities in the proximal internal carotid artery with compatible waveforms and ICA/CCA ratio is consistent with approximately 50-69% stenosis on the left. 4. Normal antegrade flow is present in bilateral vertebral arteries. Recommendation: Please note that immediately in the bulb regions peak systolic velocities alone are suggestive of narrowing closer to 69% than 50%. Stenosis =50% ICA - Follow-up ultrasound 6-12 months Stenosis <50% ICA - High Risk Patient with plaque - Follow-up ultrasound 1-2 years Normal Study but High Risk Patient - Follow-up ultrasound 3-5 years Management recommendations and diagnostic criteria are based on current IAC endorsed standards in Carotid Artery Stenosis: Grayscale and Doppler Ultrasound Diagnosis. Validated velocity measurements with angiographic measurements and velocity criteria are extrapolated from diameter data as defined by the Society of Radiologists in Ultrasound Consensus Conference Radiology 2003; 229;340-346. [facility]
== END 2018-06-12 14:50 | disposition home or self-care (01) ==
LOC: DI 14:49
PROVIDERS: ATTEND Registered Nurse
DX: I65.23 Occlusion and stenosis of bilateral carotid arteries (principal)
CPT/HCPCS: 93880

== ENCOUNTER 2018-06-12 14:50 | Outpatient (CLI) | payer MEDICARE, OTHER ==
--- NOTE | 2018-06-13 08:41 | Mammography Report ---
Reason: ENCOUNTER FOR SCREENING MAMMOGRAM Procedure Date: 06/12/2018 Accession Number: [id number] / [id number] Procedure: TUSHAR - Screening Mammo w/Drew CPT Code: FULL RESULT: EXAM: Screening Mammo w/Drew DATE: 06/12/2018 4:43 PM CLINICAL HISTORY: Screening encounter. History of early menses. History of bilateral breast implants approximately 30 years ago. TECHNIQUE: Bilateral CC and MLO views were obtained. Images were acquired in standard fashion and implant displaced fashion. COMPARISON: 11/10/2016 through 01/18/2013. FINDINGS: The breasts demonstrate diffuse fatty replacement bilaterally. There are coarse typically benign bilateral calcifications. Appearance of the bilateral breast implants is unchanged. No suspicious masses, clustered microcalcifications, or regions of architectural distortion are identified. IMPRESSION: Benign findings RECOMMENDATION: Routine annual screening unless otherwise clinically indicated. BIRADS CATEGORY 2: Benign findings STANDARD QUALIFYING STATEMENTS: 1. This examination was not reviewed with the aid of Computer-Aided Detection (CAD). 2. A negative or benign imaging report should not preclude biopsy if clinically suspicious findings are present. 3. Dense breasts may obscure an underlying neoplasm. 4. This examination was reviewed with the aid of 3D breast imaging (tomosynthesis).
== END 2018-06-12 14:51 | disposition home or self-care (01) ==
LOC: DI 14:50
PROVIDERS: ATTEND Registered Nurse
DX: Z12.31 Encounter for screening mammogram for malignant neoplasm of breast (principal); Z98.82 Breast implant status
CPT/HCPCS: 77063; 77067

== ENCOUNTER 2018-07-25 10:03 | Outpatient (CLI) | payer MEDICARE, OTHER ==
[2018-07-25 17:44] LABS: BASOPHILS % (AUTO) 0.7 %; EOSINOPHILS # (AUTO) 0.2 10^3/uL (0.0-0.7); EOSINOPHILS % (AUTO) 3.9 %; HGB - HEMOGLOBIN 13.1 g/dL (12.0-16.0); LYMPHOCYTES # (AUTO) 1.6 10^3/uL (1.5-3.5); LYMPHOCYTES % (AUTO) 33.3 %; MEAN CORPUSCULAR HEMOGLOBIN 29.7 pg (27.0-31.0); MEAN CORPUSCULAR VOLUME 87.3 fL (81.0-99.0); MEAN PLATELET VOLUME 8.2 fL (7.9-10.8); MONOCYTES # (AUTO) 0.3 10^3/uL (0.0-1.0); MONOCYTES % (AUTO) 7.2 %; NEUTROPHILS # (AUTO) 2.6 10^3/uL (1.5-6.6); NEUTROPHILS % (AUTO) 54.9 %; PLT - PLATELET COUNT 259 10^3/uL (130-450); RED BLOOD COUNT 4.42 10^6/uL (4.20-5.40); RED CELL DISTRIBUTION WIDTH 12.9 % (12.0-15.0); WHITE BLOOD COUNT 4.7 x10^3/uL (4.8-10.8)
[2018-07-25 18:14] LABS: ALBUMIN 4.1 g/dL (3.2-5.5); ALBUMIN/GLOBULIN RATIO 1.4 (1.0-2.2); ALKALINE PHOSPHATASE 77 IU/L (42-121); ALT ALANINE AMINOTRANSFERASE 30 IU/L (10-60); AST ASPARTATE AMINOTRANSFERASE 26 IU/L (10-42); BILIRUBIN,TOTAL 0.8 mg/dL (0.2-1.0); BUN - BLOOD UREA NITROGEN 16 mg/dL (6-20); CALCIUM 9.4 mg/dL (8.5-10.3); CARBON DIOXIDE - CO2 28 mmol/L (21-32); CHLORIDE 100 mmol/L (101-111); CHOL/HDL RATIO 3.3 (<4.4); CHOLESTEROL 155 mg/dL; CREATININE 0.7 mg/dL (0.4-1.0); GFR - MDRD 82 (>89); GLUCOSE 103 mg/dL (70-100); HDL CHOLESTEROL 47 mg/dL; LDL CHOLESTEROL,CALCULATED 81 mg/dL; LDL/HDL RATIO 1.7 (<4.4); SODIUM 139 mmol/L (135-145); TOTAL PROTEIN 7.1 g/dL (6.7-8.2); VLDL CHOLESTEROL 27 mg/dL
[2018-07-25 18:16] LABS: THYROID STIMULATING HORMONE 0.35 uIU/mL (0.34-5.60)
[2018-07-26 17:07] LABS: FREE T4 (FREE THYROXINE) 0.94 ng/dL (0.58-1.64)
== END 2018-07-25 10:04 | disposition home or self-care (01) ==
LOC: LAB.F 10:03
PROVIDERS: ATTEND Registered Nurse
DX: R53.83 Other fatigue (principal); Z13.1 Encounter for screening for diabetes mellitus; E03.9 Hypothyroidism, unspecified; E78.5 Hyperlipidemia, unspecified
CPT/HCPCS: 36415; 80053; 80061; 83036; 83721; 84439; 84443; 85025

== ENCOUNTER 2019-04-12 14:30 | Outpatient (CLI) | payer MEDICARE, OTHER ==
--- NOTE | 2019-04-13 22:55 | XRAY Report ---
Reason: PAIN IN LT SHOULDER, LT WRIST, LT HAND, NECK, THOR Procedure Date: 04/12/2019 Accession Number: [id number] / [id number] Procedure: XR - Hand 3 View LT CPT Code: Final Report FULL RESULT: EXAM: LEFT HAND RADIOGRAPHY EXAM DATE: 04/12/2019 03:12 PM. CLINICAL HISTORY: Pain in left shoulder, left wrist, left hand, neck, thoracic. COMPARISON: WRIST 4 VIEW LT 04/12/2019 2:42 PM. TECHNIQUE: 1. 3 views of the left hand. 2. 4 views of the left wrist. FINDINGS: Mild decreased osseous mineralization subjectively. Postsurgical changes of trapezium replacement. Advanced degenerative changes within the remainder of the triscaphe articulation. Moderate degenerative changes at the radiocarpal articulation with joint space narrowing noted. Mild degenerative changes involving multiple interphalangeal joints of the hand. No fractures or bony destructive lesions. No erosions. IMPRESSION: 1. No acute fractures or malalignment. 2. Mild decreased osseous mineralization subjectively. 3. Postsurgical changes of trapezium replacement. Advanced degenerative changes within the remainder of the triscaphe articulation. 4. Mild to moderate degenerative changes at the radiocarpal articulation and mild degenerative changes involving multiple interphalangeal joints of the left hand. [facility]
--- NOTE | 2019-04-13 22:55 | XRAY Report ---
Reason: PAIN IN LT SHOULDER, HAND, WRIST, NECK THORACIC Procedure Date: 04/12/2019 Accession Number: [id number] / [id number] Procedure: XR - Wrist 4 View LT CPT Code: Final Report FULL RESULT: EXAM: LEFT HAND RADIOGRAPHY EXAM DATE: 04/12/2019 03:12 PM. CLINICAL HISTORY: Pain in left shoulder, left wrist, left hand, neck, thoracic. COMPARISON: WRIST 4 VIEW LT 04/12/2019 2:42 PM. TECHNIQUE: 1. 3 views of the left hand. 2. 4 views of the left wrist. FINDINGS: Mild decreased osseous mineralization subjectively. Postsurgical changes of trapezium replacement. Advanced degenerative changes within the remainder of the triscaphe articulation. Moderate degenerative changes at the radiocarpal articulation with joint space narrowing noted. Mild degenerative changes involving multiple interphalangeal joints of the hand. No fractures or bony destructive lesions. No erosions. IMPRESSION: 1. No acute fractures or malalignment. 2. Mild decreased osseous mineralization subjectively. 3. Postsurgical changes of trapezium replacement. Advanced degenerative changes within the remainder of the triscaphe articulation. 4. Mild to moderate degenerative changes at the radiocarpal articulation and mild degenerative changes involving multiple interphalangeal joints of the left hand. [facility]
--- NOTE | 2019-04-13 23:11 | XRAY Report ---
Reason: PAIN IN LT SHOULDER, LT WRIST, LT HAND, NECK, THOR Procedure Date: 04/12/2019 Accession Number: [id number] / [id number] Procedure: XR - Thoracic Spine 2 View CPT Code: Final Report FULL RESULT: EXAM: CERVICAL SPINE RADIOGRAPHY, 3 VIEWS THORACIC SPINE RADIOGRAPHY, 2 VIEWS LEFT SHOULDER RADIOGRAPHY, 3 VIEWS EXAM DATE: 04/12/2019 03:12 PM. CLINICAL HISTORY: Pain in back and neck and left shoulder COMPARISONS: None FINDINGS: Cervical spine: Alignment: Straightening with loss of the normal cervical lordosis. No scoliosis or listhesis. Bones: The cervical vertebral bodies and posterior elements are well visualized from the skull base through C7-T1. No fractures or bone lesions. Disks: Disk space narrowing at C3-C4, C4-C5, C5-C6, and C6-C7 with multilevel anterior osteophyte formation. Facets: No degenerative disease. Soft Tissues: Normal. No prevertebral soft tissue swelling. The visualized lung apices are clear. Thoracic spine:: Alignment: The upper thoracic spine alignment is not well seen on the lateral radiographs. The remaining thoracic spinal alignment is maintained. Bones: Multilevel osteophyte formation. Disks: Normal. Disk heights are maintained. Soft Tissues: Normal. The visualized lungs and cardiomediastinal silhouette are normal. Left shoulder: The osseous structures are intact and well-aligned. The glenohumeral joint is normal. The acromioclavicular joint and coracoclavicular space are normal. There is no focal soft tissue swelling or demineralization. The visible portion of the left lung is clear. IMPRESSION: No evidence of acute fracture or subluxation in the cervical or thoracic spine. No evidence of fracture or dislocation in the left shoulder. [facility]
--- NOTE | 2019-04-13 23:11 | XRAY Report ---
Reason: PAIN IN LT SHOULDER, LT WRIST, NECK AND THORACIC Procedure Date: 04/12/2019 Accession Number: [id number] / [id number] Procedure: XR - Shoulder 3 View LT CPT Code: Final Report FULL RESULT: EXAM: CERVICAL SPINE RADIOGRAPHY, 3 VIEWS THORACIC SPINE RADIOGRAPHY, 2 VIEWS LEFT SHOULDER RADIOGRAPHY, 3 VIEWS EXAM DATE: 04/12/2019 03:12 PM. CLINICAL HISTORY: Pain in back and neck and left shoulder COMPARISONS: None FINDINGS: Cervical spine: Alignment: Straightening with loss of the normal cervical lordosis. No scoliosis or listhesis. Bones: The cervical vertebral bodies and posterior elements are well visualized from the skull base through C7-T1. No fractures or bone lesions. Disks: Disk space narrowing at C3-C4, C4-C5, C5-C6, and C6-C7 with multilevel anterior osteophyte formation. Facets: No degenerative disease. Soft Tissues: Normal. No prevertebral soft tissue swelling. The visualized lung apices are clear. Thoracic spine:: Alignment: The upper thoracic spine alignment is not well seen on the lateral radiographs. The remaining thoracic spinal alignment is maintained. Bones: Multilevel osteophyte formation. Disks: Normal. Disk heights are maintained. Soft Tissues: Normal. The visualized lungs and cardiomediastinal silhouette are normal. Left shoulder: The osseous structures are intact and well-aligned. The glenohumeral joint is normal. The acromioclavicular joint and coracoclavicular space are normal. There is no focal soft tissue swelling or demineralization. The visible portion of the left lung is clear. IMPRESSION: No evidence of acute fracture or subluxation in the cervical or thoracic spine. No evidence of fracture or dislocation in the left shoulder. [facility]
== END 2019-04-12 14:31 | disposition home or self-care (01) ==
LOC: DI 14:30
PROVIDERS: ATTEND Nurse Practitioner Family
DX: M25.512 Pain in left shoulder (principal); M19.032 Primary osteoarthritis, left wrist; M19.042 Primary osteoarthritis, left hand; M50.31 Other cervical disc degeneration, high cervical region
CPT/HCPCS: 72040; 72070

== ENCOUNTER 2019-06-22 18:57 | Outpatient (CLI) | payer MEDICARE, OTHER | END 2019-06-22 18:58 | disposition home or self-care (01) | LOC: EMS 18:57 | PROVIDERS: ATTEND Surgery | DX: S09.90XA Unspecified injury of head, initial encounter (principal); R11.10 Vomiting, unspecified; R07.81 Pleurodynia; M25.551 Pain in right hip; M79.601 Pain in right arm; M25.561 Pain in right knee; W11.XXXA Fall on and from ladder, initial encounter; Y92.009 Unspecified place in unspecified non-institutional (private) residence as the place of occurrence of the external cause | CPT/HCPCS: A0425; A0427 ==

== ENCOUNTER 2019-06-22 19:19 | Emergency (ER) | payer MEDICARE, OTHER ==
--- NOTE | 2019-06-22 20:22 | XRAY Report ---
Reason: fall, R knee injury Procedure Date: 06/22/2019 Accession Number: [id number] / [id number] Procedure: XR - Knee 4 View RT CPT Code: Final Report FULL RESULT: EXAM: RIGHT KNEE RADIOGRAPHY EXAM DATE: 06/22/2019 07:48 PM. CLINICAL HISTORY: Fall, R knee injury. COMPARISON: WRIST 4 VIEW LT 04/12/2019 2:42 PM. TECHNIQUE: 4 views. FINDINGS: Bones: There is mild degenerative disease in the medial compartment of the knee. Negative for fracture. No focal bony destruction. Joints: There is mild medial compartment joint space narrowing. No joint effusion. Soft Tissues: Otherwise unremarkable. IMPRESSION: Negative for acute fracture and joint effusion. Mild medial compartment degenerative disease. [facility]
[2019-06-22] MEDS ORDERED: KETOROLAC 30 MG/ML VIAL IVP STA (20:29)
--- NOTE | 2019-06-22 20:31 | CT Report ---
Reason: fall, head/neck injury Procedure Date: 06/22/2019 Accession Number: [id number] / [id number] Procedure: CT - HEAD WO CPT Code: Final Report FULL RESULT: EXAM: CT HEAD EXAM DATE: 06/22/2019 07:56 PM. CLINICAL HISTORY: Fall, head/neck injury. COMPARISON: None. TECHNIQUE: Multiaxial CT images were obtained from the foramen magnum to the vertex. Reformats: Sagittal and coronal. IV contrast: None. In accordance with CT protocol optimization, one or more of the following dose reduction techniques were utilized for this exam: automated exposure control, adjustment of mA and/or KV based on patient size, or use of iterative reconstructive technique. FINDINGS: Parenchyma: No intraparenchymal hemorrhage. No evidence of mass, midline shift or CT findings of acute territorial infarction. Guzman-white differentiation is distinct. Extraaxial Spaces: No subdural or epidural collections identified. Ventricles: No hydrocephalus Sinuses: Imaged paranasal sinuses, orbits, and mastoids show no significant abnormality. Bones: No evidence of acute fracture or calvarial defect. Other: None. IMPRESSION: No acute intracranial abnormalities. [facility]
--- NOTE | 2019-06-22 20:33 | ED Physician Documentation ---
PD HPI MAJOR TRAUMA - Stated complaint Stated Complaint: FALL 3' - Chief complaint Chief Complaint: Trauma Ext - History obtained from History obtained from: Patient, EMS - History of Present Illness Mechanism of injury: Fell Where injury occurred: Home Timing - onset: Today Injury(ies) location: Head, Neck, Right Lower Extremity (knee) Pain level max: 6 Pain level now: 5 Quality of pain: Throbbing, Aching, Dull Associated symptoms: LOC. No: AMS, Amnesia, Seizures, Ear drainage, Nasal drainage, Neck pain, Weakness, Paresthesias, Dyspnea, Nausea / vomiting - Additional information Additional information: 74-year-old female was on a ladder when she lost her balance, falling backwards to the floor. She states she felt like she was dreaming and thinks that she lost consciousness. She had 2 episodes of emesis. She has pain to the back of her head, the neck and the right knee. She called 911 and EMS brought her to the emergency department on a backboard and in a c-collar. She does not utilize blood thinners. Worse with movement and better with rest PD PAST MEDICAL HISTORY - Past Medical History Past Medical History: Yes Cardiovascular: Hypertension, High cholesterol, Murmur Respiratory: None Endocrine/Autoimmune: HyPOthyroidism GI: GERD, Hemorrhoids : None HEENT: Other Psych: None, Depression, Anxiety Musculoskeletal: Osteoarthritis, Chronic back pain Derm: None - Past Surgical History Past Surgical History: Yes /RN CLINICAL APPEALS: Tubal ligation, 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, Breast implants HEENT: Cataracts, Tonsil/Adenoidectomy - Present Medications Home Medications: Ambulatory Orders Medication Instructions Recorded Confirmed Aspirin [Aspir 81] 81 mg PO DAILY 09/16/13 06/22/19 Cholecalciferol (Vitamin D3) 2,000 unit PO DAILY 09/16/13 06/22/19 [Vitamin D3] Losartan Potassium [Cozaar] 100 mg PO DAILY 09/16/13 06/22/19 Simvastatin 20 mg PO QPM 09/16/13 06/22/19 Zolpidem [Ambien] 5 mg PO HS PRN 09/16/13 06/22/19 hydroCHLOROthiazide [Hydrodiuril] 25 mg PO DAILY 09/16/13 06/22/19 Levothyroxine Sodium [Synthroid] 137 mcg PO QDAC 05/19/17 06/22/19 Lorazepam [Ativan] 0.5 - 1 mg PO BID PRN 05/19/17 06/22/19 Citalopram [CeleXA] 10 mg PO DAILY 06/22/19 06/22/19 Meloxicam [Mobic] 7.5 mg PO BID PRN #20 tablet 06/22/19 amLODIPine [Norvasc] 5 mg PO DAILY 06/22/19 06/22/19 - Allergies Allergies/Adverse Reactions: Allergies Allergy/AdvReac Type Severity Reaction Status Date / Time acetaminophen [From Vicodin] Allergy Emesis Verified 06/22/19 19:43 hydrocodone bitartrate * Allergy Emesis Verified 06/22/19 19:43 [From Vicodin] metronidazole [From Flagyl] AdvReac Intermediate Hives Verified 06/22/19 19:43 Metronidazole HCl * AdvReac Intermediate Hives Verified 06/22/19 19:43 [From Flagyl] - Social History Does the pt smoke?: No Smoking Status: Never smoker Does the pt drink ETOH?: Yes Does the pt have substance abuse?: No - Immunizations Immunizations are current?: Yes - POLST Patient has POLST: No PD ED PE NORMAL - Vitals Vital signs reviewed: Yes - General General: Alert and oriented X 3, No acute distress, Well developed/nourished - HEENT HEENT: PERRL, EOMI, Ears normal, Moist mucous membranes, Pharynx benign, Other (Posterior scalp hematoma. No palpable skull fractures.) - Neck Neck: Other (Slight midline tenderness to palpation. No step-off or deformity. C-collar in place) - Cardiac Cardiac: RRR, Strong equal pulses - Respiratory Respiratory: No respiratory distress, Clear bilaterally - Abdomen Abdomen: Soft, Non tender, Non distended - Back Back: No spinal TTP - Derm Derm: Warm and dry - Extremities Extremities: Other (Tender to palpation over the anterior aspect of the right knee. Neurovascular intact. Full range of motion, though some tenderness.) - Neuro Neuro: Alert and oriented X 3 - Psych Psych: Normal mood, Normal affect - Free text exam Free text exam: Tender to palpation over the right lower ribs, anterior axillary line. No crepitus. No ecchymosis. Results - Vitals Vitals: Vital Signs - 24 hr 06/22/19 06/22/19 06/22/19 19:15 19:40 20:00 Temperature 36.6 C Heart Rate 69 70 66 Respiratory 18 13 12 Rate Blood Pressure 187/77 H 187/77 H 148/90 H O2 Saturation 95 100 100 06/22/19 06/22/19 06/22/19 20:35 20:47 21:18 Temperature Heart Rate 67 69 68 Respiratory 12 17 21 Rate Blood Pressure 155/75 H 155/75 H 157/96 H O2 Saturation 99 100 99 06/22/19 21:37 Temperature Heart Rate 76 Respiratory 15 Rate Blood Pressure 136/66 H O2 Saturation 95 Oxygen O2 Source Room air - Rads (name of study) head CT Radiology: Prelim report reviewed, EMP read contemporaneously, See rad report (No acute abnormality) cervical spine CT Radiology: Prelim report reviewed, EMP read contemporaneously, See rad report (No acute abnormality) chest w/o CT Radiology: Prelim report reviewed, EMP read contemporaneously, See rad report (Acute minimally displaced fractures of the right transverse processes of L1, L2 and possibly L3. 2. Chronic findings similar to prior study, as detailed above. ) R knee xray Radiology: Prelim report reviewed, EMP read contemporaneously, See rad report (No acute abnormality) PD MEDICAL DECISION MAKING - ED course Complexity details: reviewed results, re-evaluated patient, considered differential, d/w patient, d/w family ED course: 74-year-old female status post a fall off of a ladder. She landed on the right side, injuring her ribs, right knee. No tenderness over the shoulders, wrists, elbows. Negative x-rays. Negative head CT. Negative cervical spine CT. Negative chest CT. Pain well controlled with Toradol. She will use Motrin and Tylenol as needed for pain at home. No vomiting here. Patient counseled regarding signs and symptoms for which I believe and urgent re-evaluation would be necessary. Patient with good understanding of and agreement to plan and is comfortable going home at this time This document was made in part using voice recognition software. While efforts are made to proofread this document, sound alike and grammatical errors may occur. Patient is ambulating well in the emergency department. signed out to oncoming ED physician for L -spine xray Departure - Departure Clinical Impression: Knee contusion Qualifiers: Encounter type: initial encounter Laterality: right Qualified Code(s): S80.01XA - Contusion of right knee, initial encounter Head injury Qualifiers: Encounter type: initial encounter Qualified Code(s): S09.90XA - Unspecified injury of head, initial encounter Contusion of rib on right side Qualifiers: Encounter type: initial encounter Qualified Code(s): S20.211A - Contusion of right front wall of thorax, initial encounter Lumbar transverse process fracture Qualifiers: Encounter type: initial encounter Fracture type: closed Qualified Code(s): S32.009A - Unspecified fracture of unspecified lumbar vertebra, initial encounter for closed fracture Condition: Good Instructions: ED Contusion Chest Wall, ED Head Injury Closed, ED Fx Transverse Spinous Process Follow-Up: Noris Shah ARNP [Primary Care Provider] - Within 1 week Prescriptions: Meloxicam [Mobic] 7.5 mg PO BID PRN #20 tablet PRN Reason: Pain Comments: Return if you worsen. You will be sore tomorrow. No acute findings on your radiographic images tonight other than the transverse process fractures of L1 and L2.
--- NOTE | 2019-06-22 20:34 | CT Report ---
Reason: fall, head/neck injury Procedure Date: 06/22/2019 Accession Number: [id number] / [id number] Procedure: CT - CERVICAL SPINE WO CPT Code: Final Report FULL RESULT: EXAM: CT CERVICAL SPINE WITHOUT CONTRAST DATE: 06/22/2019 07:55 PM. HISTORY: Fall with head and neck injury. COMPARISONS: CERVICAL SPINE 2 VIEW 04/12/2019 2:42 PM. TECHNIQUE: Thin-section axial images were acquired of the cervical spine without contrast. Post-processing: Coronal and sagittal reformats. Other: None. In accordance with CT protocol optimization, one or more of the following dose reduction techniques were utilized for this exam: automated exposure control, adjustment of mA and/or KV based on patient size, or use of iterative reconstructive technique. FINDINGS: Alignment: Mild right convex curvature centered at C6-C7. No spondylolisthesis. Bones: No fracture or bone lesion. Interspace Levels/Facets: C1-C2: Minimal odontoaxial osteoarthritis. C2-C3: Unremarkable. C3-C4: Moderate disk height loss. Disk osteophyte complex causing mild bony central canal stenosis and mild right and moderate left bony neural foraminal narrowing. C4-C5: Moderate to severe disk height loss. Disk osteophyte complex causing mild bony central canal stenosis and severe left and mild right bony neural foraminal narrowing. C5-C6: Moderate to severe disk height loss. Disk osteophyte complex causing mild bony central canal stenosis and moderate left bony neural foraminal narrowing. C6-C7: Moderate to severe disk height loss. Disk osteophyte complex causing mild bony central canal stenosis. No significant bony neural foraminal narrowing. C7-T1: Unremarkable. Other: No paravertebral hematoma or edema is evident. Atherosclerotic calcifications in the bilateral carotid bulbs. The visualized portions of the lung apices are clear. IMPRESSION: 1. Multilevel degenerative disk disease, as detailed above, similar appearance compared to 2011. 2. No acute bony abnormality. RADIA
--- NOTE | 2019-06-22 21:38 | CT Report ---
Reason: R rib pain s/p fall Procedure Date: 06/22/2019 Accession Number: [id number] / [id number] Procedure: CT - CHEST WO CPT Code: Final Report FULL RESULT: EXAM: CT CHEST WITHOUT CONTRAST EXAM DATE: 06/22/2019 09:04 PM. CLINICAL HISTORY: Trauma. Right rib pain after fall. COMPARISONS: CHEST SCREEN LOW DOSE W/O 06/17/2016 1:10 PM. TECHNIQUE: Routine helical CT imaging was performed through the chest. IV contrast: None. Reconstructions: Coronal and sagittal. In accordance with CT protocol optimization, one or more of the following dose reduction techniques were utilized for this exam: automated exposure control, adjustment of mA and/or KV based on patient size, or use of iterative reconstructive technique. FINDINGS: Imaged neck: Unremarkable Central airways: Unremarkable Lung parenchyma: No consolidation. Unchanged left upper and lower lobe pulmonary nodules again measuring up to 9 mm likely postinfectious/postinflammatory given all the years stability. This again scarring in the right lower lobe. Pleural effusion: None Pneumothorax: None Heart: Normal in size. Coronary artery disease is present most pronounced in the LAD. Aorta: No aneurysm. Moderate atherosclerosis. Pulmonary arteries: Unremarkable Adenopathy: None Imaged abdomen: Moderate atherosclerosis of the imaged aorta. Sidewalls: Status post bilateral breast augmentation. The bilateral breast capsules are calcified. There is an intracapsular rupture of the left breast implant, similar to prior. Bones: Acute minimally displaced fractures of the right transverse processes of L1, L2 and possibly L3. No displaced acute rib fracture identified. IMPRESSION: 1. Acute minimally displaced fractures of the right transverse processes of L1, L2 and possibly L3. 2. Chronic findings similar to prior study, as detailed above. RADIA
--- NOTE | 2019-06-22 21:50 | ED Physician Documentation ---
ED Addendum - Addendum Addendum: 06/22/19 22:32 The patient was updated.On the results of her x-ray images.I reexamined the patient she is neurovascularly intact.The patient reports that she has scheduled follow-up with er back surgeon this week. Departure - Departure Disposition: 01 Home, Self Care Clinical Impression: Knee contusion Qualifiers: Encounter type: initial encounter Laterality: right Qualified Code(s): S80.01XA - Contusion of right knee, initial encounter Head injury Qualifiers: Encounter type: initial encounter Qualified Code(s): S09.90XA - Unspecified injury of head, initial encounter Contusion of rib on right side Qualifiers: Encounter type: initial encounter Qualified Code(s): S20.211A - Contusion of right front wall of thorax, initial encounter Lumbar transverse process fracture Qualifiers: Encounter type: initial encounter Fracture type: closed Qualified Code(s): S32.009A - Unspecified fracture of unspecified lumbar vertebra, initial encounter for closed fracture Condition: Good Instructions: ED Contusion Chest Wall, ED Head Injury Closed, ED Fx Transverse Spinous Process Follow-Up: Noris Shah ARNP [Primary Care Provider] - Within 1 week Prescriptions: Meloxicam [Mobic] 7.5 mg PO BID PRN #20 tablet PRN Reason: Pain Comments: Return if you worsen. You will be sore tomorrow. No acute findings on your radiographic images tonight other than the transverse process fractures of L1 and L2.
--- NOTE | 2019-06-22 22:22 | XRAY Report ---
Reason: L spine transverse process fx Procedure Date: 06/22/2019 Accession Number: [id number] / [id number] Procedure: XR - Lumbar Spine 2 View CPT Code: Final Report FULL RESULT: EXAM: LUMBOSACRAL SPINE RADIOGRAPHY EXAM DATE: 06/22/2019 10:00 PM. CLINICAL HISTORY: Lumbar spine transverse process fracture. COMPARISONS: XR LUMBAR SPINE 4 + VW 04/04/2019 12:19 PM CHEST W/O 06/22/2019 8:59 PM L-SPINE 0001 ROUTINE 01/26/2019 4:10 PM. TECHNIQUE: 3 views. FINDINGS: Alignment: Stable minimal dextroscoliosis. Stable 3 mm anterolisthesis at L4-L5. Bones: Five uru-hik-gicpcwa lumbar vertebral bodies are present. No fractures or bone lesions identified. Disks: Degenerative disk space narrowing throughout the lumbar spine with spurring. Sacroiliac Joints: Unremarkable. Soft Tissues: Calcified nondilated aorta noted. IMPRESSION: 1. Known right transverse process fractures are not seen on plain film. 2. Stable minimal dextroscoliosis and mild anterolisthesis at L4-L5. 3. Stable multilevel degenerative lumbar disk disease. RADIA
[2019-06-22 22:44] VITALS: BP 138/76
== END 2019-06-22 22:45 | disposition home or self-care (01) ==
LOC: EDUNIT# → ED 19:19
DX: S09.90XA Unspecified injury of head, initial encounter (principal); S80.01XA Contusion of right knee, initial encounter; S20.211A Contusion of right front wall of thorax, initial encounter; S32.019A Unspecified fracture of first lumbar vertebra, initial encounter for closed fracture; S32.029A Unspecified fracture of second lumbar vertebra, initial encounter for closed fracture; W11.XXXA Fall on and from ladder, initial encounter; Y93.89 Activity, other specified; Y92.009 Unspecified place in unspecified non-institutional (private) residence as the place of occurrence of the external cause; I10 Essential (primary) hypertension
CPT/HCPCS: 70450; 71250; 72100; 72125; 96374; 99281

== ENCOUNTER 2019-09-30 17:11 | Outpatient (CLI) | payer MEDICARE, OTHER | END 2019-09-30 17:12 | disposition home or self-care (01) | LOC: COV 17:11 | PROVIDERS: ATTEND Family Medicine | DX: R05 Cough (principal); R53.83 Other fatigue; J02.9 Acute pharyngitis, unspecified | CPT/HCPCS: 81599 ==

== ENCOUNTER 2020-06-05 11:19 | Outpatient (CLI) | payer MEDICARE, OTHER ==
--- NOTE | 2020-06-08 07:54 | Mammography Report ---
BILATERAL DIGITAL SCREENING MAMMOGRAM 3D/2D WITH AUGMENTATION: 06/05/2020 CLINICAL: Routine screening. Comparison is made to exams dated: 06/12/2018 mammogram, 11/10/2016 mammogram, 07/23/2015 mammogram, 01/27 mammogram, and 01/18/2013 mammogram - [facility]. The tissue of both breasts is predominantly fatty. Bilateral breast implants are stable. No significant masses, calcifications, or other findings are seen in either breast. There has been no significant interval change. IMPRESSION: NEGATIVE There is no mammographic evidence of malignancy. A 1 year screening mammogram is recommended. This exam was interpreted at Station ID: [id number]. NOTE: For mammograms, a report in lay terms will be sent to the patient. Approximately 15% of breast malignancies will not be visualized mammographically. In the management of a palpable breast mass, a negative mammogram must not discourage biopsy of a clinically suspicious lesion. Electronically Signed By: Christiano christie/penrad:06/05/2020 18:18:50 ACR BI-RADS Category 1: Negative 3341F PARENCHYMAL PATTERN: (F) - The breast(s) demonstrate(s) diffuse fatty replacement. BI-RADS CATEGORY: (1) - 1 RECOMMENDATION: (ANNUAL) - Recommend routine annual screening mammography. [id number] 1 year screening LATERALITY: (B)
== END 2020-06-05 11:20 | disposition home or self-care (01) ==
LOC: DI 11:19
PROVIDERS: ATTEND Registered Nurse
DX: Z12.31 Encounter for screening mammogram for malignant neoplasm of breast (principal); Z98.82 Breast implant status
CPT/HCPCS: 77067

== ENCOUNTER 2020-06-05 11:19 | Outpatient (CLI) | payer MEDICARE, OTHER ==
--- NOTE | 2020-06-06 12:07 | Ultrasound Report ---
PROCEDURE: Carotid Doppler Complete INDICATIONS: RT CAROTID ARTERY STENOSIS TECHNIQUE: Color and pulse Doppler interrogation was performed of both carotid systems, with image documentation and velocity measurements. COMPARISON: 06/12/2018 FINDINGS: Right side: Common carotid artery peak systolic velocity: 67 cm/sec, prior 89 cm/sec. Internal carotid artery peak systolic velocity: 252 cm/sec, prior 201 cm/sec. Internal carotid artery end diastolic velocity: 54 cm/sec, prior 44 cm/sec. External carotid artery peak systolic velocity: 80 cm/sec, prior 79 cm/sec. ICA/CCA peak systolic ratio: 3.7, prior 2.26 Guzman scale imaging description: Prominent atherosclerotic changes are seen. Percent internal carotid artery stenosis: Greater than 70% Vertebral artery: Flow direction is antegrade. Left side: Common carotid artery peak systolic velocity: 84 cm/sec, prior 73 cm/sec. Internal carotid artery peak systolic velocity: 182 cm/sec, prior 222 cm/sec. Internal carotid artery end diastolic velocity: 43 cm/sec, prior 39 cm/sec. External carotid artery peak systolic velocity: 67 cm/sec, prior 90 cm/sec. ICA/CCA peak systolic ratio: 2.2, prior 3.04 Guzman scale imaging description: At least moderate atherosclerotic changes are seen. Percent internal carotid artery stenosis: 50-69% stenosis by velocity criteria Vertebral artery: Flow direction is antegrade. The brachial blood pressure measurements were not obtained. IMPRESSION: By velocity criteria, there is a greater than 70% stenosis of the right internal carotid artery, whic h has progressed compared to the prior. There is a moderate stenosis of 50-69% seen within the left internal carotid artery by velocity crite rola. The estimate of stenosis included in the report of the imaging study was calculated using the NASCET method Reviewed by: Mihai Babcock MD on 06/06/2020 11:06 AM [facility] Approved by: Mihai Babcock MD on 06/06/2020 11:06 AM [facility] Station ID: [id number]
== END 2020-06-05 11:20 | disposition home or self-care (01) ==
LOC: DI 11:19
PROVIDERS: ATTEND Registered Nurse
DX: I65.21 Occlusion and stenosis of right carotid artery (principal); I65.22 Occlusion and stenosis of left carotid artery
CPT/HCPCS: 93880

== ENCOUNTER 2020-11-12 10:45 | Outpatient (CLI) | payer MEDICARE, OTHER ==
[2020-11-12 11:33] LABS: ALBUMIN 4.9 g/dL (3.2-5.5); ALBUMIN/GLOBULIN RATIO 1.8 (1.0-2.2); ALKALINE PHOSPHATASE 75 IU/L (42-121); ALT ALANINE AMINOTRANSFERASE 27 IU/L (10-60); AST ASPARTATE AMINOTRANSFERASE 23 IU/L (10-42); BUN - BLOOD UREA NITROGEN 17 mg/dL (6-20); CALCIUM 9.7 mg/dL (8.5-10.3); CARBON DIOXIDE - CO2 28 mmol/L (21-32); CHLORIDE 102 mmol/L (101-111); CHOLESTEROL 164 mg/dL; CREATININE 0.9 mg/dL (0.4-1.0); GFR - MDRD 61 (>89); GLUCOSE 109 mg/dL (70-100); HDL CHOLESTEROL 55 mg/dL; LDL CHOLESTEROL,CALCULATED 91 mg/dL; LDL/HDL RATIO 1.7 (<4.4); POTASSIUM 3.8 mmol/L (3.5-5.0); SODIUM 139 mmol/L (135-145); TOTAL PROTEIN 7.7 g/dL (6.7-8.2); TRIGLYCERIDES 91 mg/dL; VLDL CHOLESTEROL 18 mg/dL
[2020-11-12 11:45] LABS: THYROID STIMULATING HORMONE 2.77 uIU/mL (0.34-5.60)
[2020-11-12 11:48] LABS: FREE T4 (FREE THYROXINE) 0.92 ng/dL (0.58-1.64)
[2020-11-12 12:00] LABS: ESTIMATED AVERAGE GLUCOSE 111 mg/dL (70-100); HEMOGLOBIN A1c% 5.5 % (4.27-6.07)
== END 2020-11-12 10:46 | disposition home or self-care (01) ==
LOC: LAB 10:45
PROVIDERS: ATTEND Registered Nurse
DX: E03.9 Hypothyroidism, unspecified (principal); R73.01 Impaired fasting glucose; E78.5 Hyperlipidemia, unspecified
CPT/HCPCS: 36415; 80053; 80061; 83036; 83721; 84439; 84443

== ENCOUNTER 2020-12-29 12:01 | Day surgery (SDC) | payer MEDICARE, OTHER ==
[2020-12-29] MEDS ORDERED: LACTATED RINGERS 1,000 ML IV ONE ×2 (12:14→14:26)
[2020-12-29] MEDS ORDERED: LIDO GARGLE 30 ML BOTTLE ONE (13:28)
[2020-12-29] MEDS ORDERED: MIDAZOLAM 2 MG/2 ML VIAL ONE ×4 (13:37→14:17)
[2020-12-29] MEDS ORDERED: fentaNYL 250 MCG/5 ML VIAL ONE (13:37)
[2020-12-29] MEDS ORDERED: SCOPOLAMINE PATCH TOP ONE (13:39)
[2020-12-29] MEDS ORDERED: ONDANSETRON 4 MG/2 ML VIAL ONE (13:40)
[2020-12-29 14:52] VITALS: BP 101/58
== END 2020-12-29 12:02 | disposition home or self-care (01) ==
LOC: SDS 12:01
PROVIDERS: ATTEND Surgery
PROC: 0DB78ZX Excision of Stomach, Pylorus, Via Natural or Artificial Opening Endoscopic, Diagnostic (ICD-10-PCS; 2020-12-29)
PROC: 0DB58ZX Excision of Esophagus, Via Natural or Artificial Opening Endoscopic, Diagnostic (ICD-10-PCS; 2020-12-29)
PROC: 0DBP8ZZ Excision of Rectum, Via Natural or Artificial Opening Endoscopic (ICD-10-PCS; principal; 2020-12-29 13:15)
PROC: 0DB98ZX Excision of Duodenum, Via Natural or Artificial Opening Endoscopic, Diagnostic (ICD-10-PCS; 2020-12-29 13:15)
DX: Z12.11 Encounter for screening for malignant neoplasm of colon (principal); K21.9 Gastro-esophageal reflux disease without esophagitis; D12.8 Benign neoplasm of rectum; K57.30 Diverticulosis of large intestine without perforation or abscess without bleeding; K64.8 Other hemorrhoids; K64.4 Residual hemorrhoidal skin tags; K29.50 Unspecified chronic gastritis without bleeding; K44.9 Diaphragmatic hernia without obstruction or gangrene; Z80.0 Family history of malignant neoplasm of digestive organs
CPT/HCPCS: 43239; 45380; A9270; J3010; J3490; J7120

== ENCOUNTER 2021-02-17 10:55 | Outpatient (CLI) | payer MEDICARE, OTHER ==
--- NOTE | 2021-02-18 10:47 | Mammography Report ---
BILATERAL DIGITAL DIAGNOSTIC MAMMOGRAM 3D/2D: 02/17/2021 CLINICAL: Diffuse left breast pain. Diffuse right breast pain. Comparison is made to exams dated: 06/05/2020 mammogram, 06/12/2018 mammogram, 11/30/2016 ultrasound, mammogram, 07/23/2015 mammogram, and 01/27/2014 mammogram - [facility]. The t issue of both breasts is predominantly fatty. Bilateral breast implants are stable. There are benign calcifications in both breasts. No significant masses, calcifications, or other findings are seen in either breast. IMPRESSION: BENIGN The patient had some concern that her breast implants may have been ruptured from recent trauma. She was advised that the mammogram shows no evidence of this however an MRI would be necessary to be 100 % sure and could be performed if desired. There is no mammographic evidence of malignancy. A one ye ar screening mammogram is recommended. This exam was interpreted at Station ID: [id number]. NOTE: For mammograms, a report in lay terms will be sent to the patient. Approximately 15% of breast malignancies will not be visualized mammographically. In the management of a palpable breast mass, a negative mammogram must not discourage biopsy of a clinically suspicious lesion. Electronically Signed By: Denilson Alaniz acr/:02/18/2021 09:43:16 ACR BI-RADS Category 2: Benign Finding(s) 3342F PARENCHYMAL PATTERN: (F) - The breast(s) demonstrate(s) diffuse fatty replacement. BI-RADS CATEGORY: (2) - 2 RECOMMENDATION: (ANNUAL) - Recommend routine annual screening mammography. [id number] 1 year screening LATERALITY: (B)
== END 2021-02-17 10:56 | disposition home or self-care (01) ==
LOC: DI 10:55
PROVIDERS: ATTEND Registered Nurse
DX: S20.02XA Contusion of left breast, initial encounter (principal); S20.01XA Contusion of right breast, initial encounter; Z98.82 Breast implant status

== ENCOUNTER 2022-09-05 09:31 | Outpatient (CLI) | payer MEDICARE, OTHER ==
--- NOTE | 2022-09-07 10:03 | Mammography Report ---
BILATERAL DIGITAL SCREENING MAMMOGRAM 3D/2D WITH AUGMENTATION: 09/05/2022 CLINICAL: Routine screening. Comparison is made to exams dated: 02/17/2021 mammogram, 06/05/2020 mammogram, 06/12/2018 mammogram, mammogram, 07/23/2015 mammogram, and 01/27/2014 mammogram - [facility]. Both breasts are almost entirely fatty (category a/<25% glandular tissue). Bilateral breast implants are stable. There are benign calcifications in both breasts. No significant masses, calcifications, or other findings are seen in either breast. There has been no significant interval change. IMPRESSION: BENIGN There is no mammographic evidence of malignancy. A 1 year screening mammogram is recommended. Based on the Tyrer Cuzick model (a risk assessment model) the patients lifetime risk is 1.0% and her 10 year risk is 0.0%. According to the ACR, ACS, and NCCN guidelines, an annual breast MRI exam mona g with mammogram is recommended if the patients lifetime risk is 20% or greater. This exam was interpreted at Station ID: [id number]. NOTE: For mammograms, a report in lay terms will be sent to the patient. Approximately 15% of breast malignancies will not be visualized mammographically. In the management of a palpable breast mass, a negative mammogram must not discourage biopsy of a clinically suspicious lesion. Electronically Signed By: Mele lowe/lionel:09/05/2022 17:05:55 letter sent: No_Letter ACR BI-RADS Category 2: Benign Finding(s) 3342F PARENCHYMAL PATTERN: (F) - The breast(s) demonstrate(s) diffuse fatty replacement. BI-RADS CATEGORY: (2) - 2 Mammogram [id number] 1 year screening LATERALITY: (B)
== END 2022-09-05 09:32 | disposition home or self-care (01) ==
LOC: DI 09:31
PROVIDERS: ATTEND Registered Nurse
DX: Z12.31 Encounter for screening mammogram for malignant neoplasm of breast (principal)

== ENCOUNTER 2022-11-04 10:17 | Outpatient (CLI) | payer MEDICARE, OTHER ==
--- NOTE | 2022-11-04 11:04 | XRAY Report ---
PROCEDURE: Chest 2 View X-Ray INDICATIONS: COUGH, UNSPECIFIED TECHNIQUE: 2 views of the chest were acquired. COMPARISON: 09/14/2017. FINDINGS: Surgical changes and devices: None. Lungs and pleura: No pleural effusions or pneumothorax. Lungs are clear. Mediastinum: Mediastinal contours appear normal. Heart size is normal. Bones and chest wall: No suspicious bony lesions. Overlying soft tissues appear unremarkable. IMPRESSION: No acute cardiopulmonary process. Reviewed by: Segundo Vargas MD on 11/04/2022 11:02 AM PDT Approved by: Segundo Vargas MD on 11/04/2022 11:02 AM PDT Station ID: [id number]
== END 2022-11-04 10:18 | disposition home or self-care (01) ==
LOC: DI.S 10:17
PROVIDERS: ATTEND Physician Assistant
DX: R05.9 Cough, unspecified (principal)

== ENCOUNTER 2023-10-19 07:49 | Outpatient (CLI) | payer MEDICARE, OTHER ==
--- NOTE | 2023-10-19 11:47 | Mammography Report ---
BILATERAL DIGITAL DIAGNOSTIC MAMMOGRAM 3D/2D WITH AXILLARY TAIL WITH AUGMENTATION: 10/19/2023 CLINICAL: Occasional left breast lump. Due for bilateral exam. Comparison is made to exams dated: 09/05/2022 mammogram, 02/17/2021 mammogram, 06/05/2020 mammogram, mammogram, 11/10/2016 mammogram, and 07/23/2015 mammogram - [facility]. Both breasts are almost entirely fatty (category a/<25% glandular tissue). Bilateral prepectoral saline implants are stable including left capsular calcification. No significant masses, calcifications, or other findings are seen in either breast. Specifically, no finding to correspond to the patient's left axillary palpable abnormality. Benign bilateral calcific ations are present throughout both breasts. IMPRESSION: INCOMPLETE: NEEDS ADDITIONAL IMAGING EVALUATION Bilateral mammograms and implants are stable. There is no abnormality seen in the left axilla to correspond with the palpable abnormality in the le ft axilla. Ultrasound is recommended for full evaluation of this area. This was performed immediately following this exam. Based on the Tyrer Cuzick model (a risk assessment model) the patient's lifetime risk is 0.9% and her 10 year risk is 0.0%. According to the ACR, ACS, and NCCN guidelines, an annual breast MRI exam mona g with mammogram is recommended if the patient's lifetime risk is 20% or greater. This exam was interpreted at Station ID: [id number]. NOTE: For mammograms, a report in lay terms will be sent to the patient. Approximately 15% of breast malignancies will not be visualized mammographically. In the management of a palpable breast mass, a negative mammogram must not discourage biopsy of a clinically suspicious lesion. Electronically Signed By: Shira irvin/:10/19/2023 09:27:30 ACR BI-RADS Category 0: Incomplete 3340F PARENCHYMAL PATTERN: (F) - The breast(s) demonstrate(s) diffuse fatty replacement. BI-RADS CATEGORY: (0) - 0 Ultrasound [id number] Immediate follow-up LATERALITY: (B)
--- NOTE | 2023-10-19 11:48 | Ultrasound Report ---
LIMITED ULTRASOUND OF LEFT BREAST AND AXILLA: 10/19/2023 CLINICAL: Palpable left axilla lump. Comparison is made to exams dated: 10/19/2023 mammogram, 09/05/2022 mammogram, 02/17/2021 mammogram, mammogram, and 06/12/2018 mammogram - [facility]. Ultrasound of the left breast axilla was performed. Guzman scale images of the real-time examination were reviewed. No significant abnormalities were seen sonographically in the left axilla. Specifically, no finding to correspond to the patient's palpable abnormality. IMPRESSION: NEGATIVE There is no sonographic correlate to the patient's palpable abnormality and no evidence of malignancy . Return to annual mammogram screening schedule is recommended. Findings and recommendations were conveyed to the patient at time of exam. This exam was interpreted at Station ID: [id number]. Electronically Signed By: Shira irvin/:10/19/2023 09:28:08 letter sent: No_Letter Ultrasound BI-RADS: 1 Negative BI-RADS CATEGORY: (1) - 1 Mammogram [id number] return to screening LATERALITY: (B)
== END 2023-10-19 07:50 | disposition home or self-care (01) ==
LOC: DI 07:49
PROVIDERS: ATTEND Nurse Practitioner Family
DX: N63.21 Unspecified lump in the left breast, upper outer quadrant (principal); Z98.82 Breast implant status